=== PATIENT | female | born 1950 | race Caucasian/White ===

== ENCOUNTER 2017-01-04 08:17 | Day surgery (SDC) | payer MEDICARE ==
[~2017-01-04] VITALS: Ht 160 cm; Wt 80.7 kg
[~2017-01-04 08:17] MED LIST: AMARYL2 MG PO; AMBIEN10 MG PO; ASPIRIN 81MG TA81 MG PO; AVINZA PO; BUSPIRONE HCL10 MG PO; CELEBREX 200MG200 MG PO; CLONAZEPAM 1MG T1 MG PO; COMBIVENT INH14.7 GM IN; ESTRADIOL0.5 MG PO; HYOSCYAMINE0.125 MG OR; KEFLEX 500MG.500 MG PO; LISINOPRIL 5MG T5 MG PO; LISINOPRIL2.5 M1 PO; LOPERAMIDE HCL2 M1 PO; LYRICA75 MG PO; MELOXICAM15 MG PO; METFORMIN 500M500 MG PO; METFORMIN1000 MG PO; METFORMIN500 MG PO; MIRALAX17 GM/PACK PO; MORPHINE SULFAT30 M3 PO; MUCINEX DM 30 M1 TE1 PO; NEXIUM40 MG PO; PAXIL CR25 MG PO; PAXIL20 MG PO; PAXIL40 MG PO; PERCOCET 10 MG1 EACH PO; PHENERGAN 25MG.25 M1 PO; PRAVASTATIN 40M40 MG PO; SEROQUEL 25MG T25 MG PO; SINGULAIR10 MG PO; SPIRIVA HA1 PUFF/INH IH; SUCRALFATE 1GM T1 GM NG; TRAZODONE50 MG PO; VERELAN PM100 MG PO; XANAX0.5 MG PO; ZETIA10 MG PO; ZOFRAN4 MG PO
--- NOTE | 2017-01-04 09:29 | Operative Note ---
Colonoscopy ([facility]) Procedure date: 01/04/17 Date of : 48 Procedure:Colonoscopy Colonoscopy with cold snare polypectomy Indications: Mrs. Rios is a 66-year-old female here for screening colonoscopy. The patient did have a colonoscopy with ia in March 2001 and had left-sided diverticulosis and pericolonic adhesions. The patient does report some abdominal crampy discomfort in the lower abdomen that occurs with certain foods including corn/ popcorn. This is sometimes also accompanied by bowel urgency. She reports mostly regular bowel movements. She does have moderate bloating and gassiness. She reports no rectal bleeding or weight loss. She does state that her mother had colon cancer at the age is 76. The patient does take hyoscyamine for her abdominal crampy discomfort. She has had prior cholecystectomy and hysterectomy. Performing Provider: Kelsi Ventura MD Referrring Provider: Rigo Lynn M.D. Sedation: MAC sedation Procedure: Prior to the procedure, a history and physical exam was performed, and patient medications and allergies were reviewed. The risks and benefits of the procedure and the sedation options and risks were discussed with the patient. All questions were answered and informed consent was obtained. Patient identification and proposed procedure were verified by the physician and the nurse. The patient was placed in a left lateral decubitus position. Throughout the procedure, the patient's blood pressure, pulse, and oxygen saturations were monitored continuously. Findings: On digital rectal examination there was normal rectal tone. There were no external hemorrhoids. The colonoscope was introduced through the anal canal to the rectum and advanced to the cecum. The ileocecal valve and appendiceal orifice were identified. The scope was advanced a short distance into the ileum which appeared grossly normal. The scope was then withdrawn into the colon. There were 3 colon polyps identified in the cecum 1 and transverse 2. These ranged in size from 5-7 mm and were all removed via cold snare polypectomy. There were scattered diverticuli throughout the descending and sigmoid colon ( LEFT colon). The rectum itself was normal. Upon retroflexion within the rectum there were grade 1 internal hemorrhoids. Impressions: 1. Colonic polyps 3 2. Left-sided diverticulosis 3. Grade 1 internal hemorrhoids Recommendations: I will follow up the polyp pathology and recommend repeat colonoscopy again in 5 years based upon the polyp histology and the patient's family history. I would encourage dietary measures, fiber bowel regimen and probiotic on a long- term daily maintenance basis. Complications: None EBL (ml): 0 at 0967
[2017-01-04 11:22] VITALS: BP 128/69
== END 2017-01-04 10:30 | disposition home or self-care (01) ==
LOC: SDC 08:17
PROVIDERS: Internal Medicine Gastroenterology
PROC: 0DBL8ZX Excision of Transverse Colon, Via Natural or Artificial Opening Endoscopic, Diagnostic (ICD-10-PCS; 2017-01-04)
PROC: 0DBH8ZX Excision of Cecum, Via Natural or Artificial Opening Endoscopic, Diagnostic (ICD-10-PCS; principal; 2017-01-04 09:30)
DX: Z12.11 Encounter for screening for malignant neoplasm of colon (principal); K63.5 Polyp of colon; K57.30 Diverticulosis of large intestine without perforation or abscess without bleeding; K64.0 First degree hemorrhoids; E11.9 Type 2 diabetes mellitus without complications

== ENCOUNTER → 2017-02-11 | Outpatient (CLI) | payer MEDICARE ==
--- NOTE | 2017-02-17 07:33 | RADIOLOGY REPORT PS360 ---
DIG MAMM-SCREEN SAFIA W/CAD ORDERING PHYSICIAN : Rigo Lynn MD PATIENT AGE: 66 years GENDER: Female COMPARISON: December 2013. January 2010 bilateral mammogram. Also May 2015 We again see numerous tiny scattered punctate and point calcifications throughout both breasts slightly more evident throughout the medial left breast. These diffuse scattered character most compatible with benign adenosis HISTORY:66-year-old. Taking estrogen. Previous cyst aspirations bilateral.. HISTORY sheet on the last 2015 visit states her daughter with breast cancer age today's history sheet does not such TECHNIQUE: Std CC & MLO images were obtained. R2 CAD reviewed. FINDINGS: Moderately dense nodular breast bilaterally with overall architecture decreases sensitivity of mammography. RIGHT BREAST: Subtle area irregular focal density likely from focal scar at deep medial right breast is again seen on today's cc view. This is been present since 2009 and also December 2013 LEFT BREAST: Area labeled X: at the medial breast.-Contains numerous fine/tiny stippled calcification seen in this region which have become apparent & would benefit from magnification spot views. Nodule labeled Y is also small 7.8 mm nodular density labeled Y at the upper outer quadrant of best seen on MLO view. May be a small cyst. Cyst have been seen on previous ultrasound.. Recommend CC and MLO spot views to this area.... Just anterior to this area Initially question region mild architectural distortion lateral breast on cc view but with further review this I believe merely reflect overlapping shadows. Area Z: Suggestion of 2 other 1 cm rounded densities at medial left breast measuring up to 9 mm labeled Z on cc view. More medial of these Slightly more apparent... Warrants ultrasound IMPRESSION: WarrantsAdditional views left breast with left breast ultrasound Left breast:.. Area X: Tiny stippled calcifications throughout deep inferior medial left breast now evident & warrant additional magnification spot views 90 degrees and cc Area Y: Suspect new density, probable 8mm cyst cyst deep lateral breast, best seen on on MLO view. Area Z.... 2Round near 1 cm densities reflecting likely cysts at the medial breast CC view. One was seen previously perhaps slightly larger cc view most likely these are suggest Ultrasound left breast again warranted as well BI-RADS CATEGORY: 0_Incomplete: Need additional imaging. RECOMMENDED FOLLOWUP: ADD ADDITIONAL IMAGING Additional views left breast with left breast ultrasound (A letter has been sent to the patient regarding results of the study.)
== END ==
LOC: RAD 15:54
DX: Z12.31 Encounter for screening mammogram for malignant neoplasm of breast (principal)
CPT/HCPCS: G0202